=== PATIENT | female | born 1990 | race Caucasian/White ===

== ENCOUNTER 2023-08-15 09:43 | Outpatient (CLI) | payer OTHER ==
[~2023-08-15 09:43] MED LIST: DOLOGESIC CAPSU1 CAP PO; IBUPROFEN800 MG PO; ORPH100T PO; TUSICOF LIQUID120 ML PO
== END 2023-08-15 10:06 | disposition home or self-care (01) ==
LOC: SONOGRAMA 09:43
PROVIDERS: ATTEND Obstetrics & Gynecology Reproductive Endocrinology
DX: N70.11 Chronic salpingitis (principal)